=== PATIENT | female | born 1960 | race Two or more races ===

== ENCOUNTER 2024-08-18 08:16 | Outpatient (CLI) | payer OTHER | END 2024-08-18 08:23 | disposition home or self-care (01) | LOC: SONOGRAMA 08:16 | PROVIDERS: ATTEND Pathology Anatomic Pathology & Clinical Pathology | DX: E04.1 Nontoxic single thyroid nodule (principal); D34 Benign neoplasm of thyroid gland; E07.89 Other specified disorders of thyroid ==